=== PATIENT | female | born 1940 | race Caucasian/White ===

== ENCOUNTER 2024-05-16 08:09 | Day surgery (SDC) | payer MEDICARE, BC ==
[2024-05-15 11:45] VITALS: BMI 40.0
[2024-05-16] MEDS ORDERED: PROPOFOL 20 ML ONE (09:10)
[2024-05-16] MEDS ORDERED: Lidocaine 1% PF 5 ML VIAL ONE (09:10)
[2024-05-16] MEDS ORDERED: PHENYLEPHRINE-NS 100 MCG/ML 10 ML SYRINGE ONE (09:10)
== END 2024-05-16 10:50 | disposition home or self-care (01) ==
LOC: SDC 08:09
PROVIDERS: ATTEND Internal Medicine Cardiovascular Disease
PROC: 5A2204Z Restoration of Cardiac Rhythm, Single (ICD-10-PCS; principal; 2024-05-16)
DX: I48.19 Other persistent atrial fibrillation (principal); I48.0 Paroxysmal atrial fibrillation; I48.3 Typical atrial flutter; I35.0 Nonrheumatic aortic (valve) stenosis; I10 Essential (primary) hypertension; Z86.73 Personal history of transient ischemic attack (TIA), and cerebral infarction without residual deficits; Z85.038 Personal history of other malignant neoplasm of large intestine; E78.5 Hyperlipidemia, unspecified; Z96.649 Presence of unspecified artificial hip joint; Z96.659 Presence of unspecified artificial knee joint; Z79.01 Long term (current) use of anticoagulants; Z79.82 Long term (current) use of aspirin; Z79.899 Other long term (current) drug therapy; Z92.89 Personal history of other medical treatment
CPT/HCPCS: 92960; 93005; J2704; 93010

== ENCOUNTER 2024-11-25 12:38 | Outpatient (CLI) | payer MEDICARE | END 2024-11-25 12:39 | disposition home or self-care (01) | LOC: CT 12:38 | PROVIDERS: ATTEND Family Medicine | DX: R31.0 Gross hematuria (principal); R93.5 Abnormal findings on diagnostic imaging of other abdominal regions, including retroperitoneum; K76.9 Liver disease, unspecified; I70.90 Unspecified atherosclerosis; Z93.3 Colostomy status | CPT/HCPCS: 74176 ==